=== PATIENT | male | born 1975 | race Caucasian/White ===

== ENCOUNTER → 2017-03-07 | Outpatient (CLI) | payer BC ==
[~2017-03-07] MED LIST: ATENPOW10; ATIVAN; LISIPOW
[2017-03-07 08:48] LABS: Urine RBC None Seen /hpf (0 - 3)
[2017-03-07 08:53] LABS: Basophils # (auto) 0 uL; Basophils % (auto) 0.2 % (0.0-2.0); Eosinophils # (auto) 0.1 uL; Eosinophils % (auto) 1.4 % (0.0-7.0); Hematocrit 45.3 % (41.0-53.0); Hemoglobin 15.5 g/dL (13.5-17.5); Lymphocytes # (auto) 2.3 uL; Lymphocytes % (auto) 31.5 % (10.0-50.0); Mean Corpuscular Hemoglobin 29.9 pg (28.0-32.0); Mean Corpuscular Hgb Conc. 34.2 g/dL (32.0-36.0); Mean Corpuscular Volume 87.3 fL (80.0-100.0); Mean Platelet Volume 10.4 fL (7.4-10.4); Monocytes # (auto) 0.5 uL; Monocytes % (auto) 6.7 % (0.0-12.0); Neutrophils # (auto) 4.4 uL; Neutrophils % (auto) 60.2 % (37.0-80.0); Platelet Count (auto) 230 10^3/uL (140-450); Red Cell Distribution Width 13.6 % (11.6-16.0); SUSPECT VIEW TRANSMISSION; White Blood Cell 7.3 10^3/uL (4.4-10.8)
[2017-03-07 09:14] LABS: Urine Bilirubin Negative (Negative); Urine Blood Negative /uL (Negative); Urine Color Yellow (Yellow); Urine Glucose Normal (Normal); Urine Ketone Negative (Negative); Urine Mucus FEW (None Seen); Urine Nitrite Negative (Negative); Urine Urobilinogen Normal (Negative)
[2017-03-07 09:22] LABS: BUN/Creatinine Ratio 18.7; Bilirubin, Total 0.7 mg/dL (0.2-1.0); Calcium 9.1 mg/dL (8.5-10.1); Potassium 4.4 mmol/L (3.5-5.1); Total Protein 7.9 g/dL (6.4-8.2)
== END | disposition home or self-care (01) ==
LOC: LAB 08:32
PROVIDERS: ATTEND Internal Medicine
DX: I10 Essential (primary) hypertension (principal); Z00.00 Encounter for general adult medical examination without abnormal findings
CPT/HCPCS: 36415; 80053; 80061; 81001; 82306; 83036; 85025

== ENCOUNTER 2017-11-17 23:43 | Inpatient (IN) | payer BC ==
[~2017-11-17] VITALS: Ht 30.5 cm; Wt 120.7 kg
[2017-11-18] VITALS (7 sets, daily range): BP systolic 116–152; BP diastolic 72–90
[2017-11-18] MEDS ORDERED: HYDROcodone-ACET 5/325MG TAB PO PRN (01:00)
[2017-11-18] MEDS ORDERED: NITROGLYCERIN 0.4 MG SL TAB SL PRN (01:00)
[2017-11-18] MEDS ORDERED: MORPHINE SULFATE 4 MG/ML SYR/VIAL IV PRN (01:00)
[2017-11-18] MEDS ORDERED: hydrOXYzine 25 MG TAB or CAP PO PRN (01:00)
[2017-11-18] MEDS ORDERED: ACETAMINOPHEN 500 MG TAB PO PRN (01:00)
[2017-11-18] MEDS ORDERED: LISINOPRIL 20 MG TAB PO ONE (01:00)
[2017-11-18] MEDS ORDERED: ONDANSETRON HCL 4 MG/2 ML VIAL IV PRN (01:00)
[2017-11-18] MEDS ORDERED: ATEN50TA PO (01:38)
[2017-11-18] MEDS ORDERED: IBUP100S11 PO (01:40)
[2017-11-18] MEDS ORDERED: LISI-646 PO (01:40)
[2017-11-18] MEDS ORDERED: HYDRX10T PO (01:41)
[2017-11-18 01:48] LABS: Basophils # (auto) 0 uL; Basophils % (auto) 0.5 % (0.0-2.0); Eosinophils # (auto) 0.1 uL; Eosinophils % (auto) 1.3 % (0.0-7.0); Hematocrit 40.1 % (41.0-53.0); Hemoglobin 13.8 g/dL (13.5-17.5); Lymphocytes # (auto) 2.3 uL; Lymphocytes % (auto) 35.9 % (10.0-50.0); Mean Corpuscular Hgb Conc. 34.3 g/dL (32.0-36.0); Mean Corpuscular Volume 87.3 fL (80.0-100.0); Monocytes # (auto) 0.5 uL; Monocytes % (auto) 8.4 % (0.0-12.0); Neutrophils # (auto) 3.5 uL; Neutrophils % (auto) 53.9 % (37.0-80.0); Nucleated Red Blood Cells % 0.2 %; Platelet Count (auto) 179 10^3/uL (140-450); Red Blood Cells 4.59 10^6/uL (4.5-5.90); Red Cell Distribution Width 13.4 % (11.8-14.3); White Blood Cell 6.4 10^3/uL (4.4-10.8)
[2017-11-18 04:01] LABS: BUN/Creatinine Ratio 17.3; Calcium 8.5 mg/dL (8.5-10.1); Potassium 3.8 mmol/L (3.5-5.1)
[2017-11-18] MEDS ORDERED: IBUPROFEN 600 MG TAB PO PRN ×2 (04:30→19:30)
[2017-11-18 08:34] LABS: Urine Bacteria NONE SEEN /hpf (None Seen); Urine Blood Negative /uL (Negative); Urine Specific Gravity 1.011 (1.001-1.035); Urine WBC <1 /hpf (0 - 3)
[2017-11-18] MEDS: ATENOLOL 50 MG TAB PO SCH (14:35)
[2017-11-18] MEDS ORDERED: LISINOPRIL 20 MG TAB PO SCH (18:00)
[2017-11-19 05:00] VITALS: BP_SYST 122; BP_SYST 131; BP_DIAS 66; BP_DIAS 81
[2017-11-19 07:52] VITALS: BP 119/75
[2017-11-19 08:00] VITALS: BP 119/75
[2017-11-19 09:49] VITALS: BP 122/72
[2017-11-19] MEDS: ATENOLOL 50 MG TAB PO SCH (10:00)
== END 2017-11-19 11:00 | disposition home or self-care (01) | DRG 880 ==
LOC: TELE-EAST 23:43
PROVIDERS: ADMIT Nurse Practitioner Family; ATTEND Internal Medicine
DX: F41.9 Anxiety disorder, unspecified (principal); Z68.45 Body mass index [BMI] 70 or greater, adult; E66.9 Obesity, unspecified; I45.10 Unspecified right bundle-branch block; E78.5 Hyperlipidemia, unspecified; I10 Essential (primary) hypertension; R73.9 Hyperglycemia, unspecified; Z88.1 Allergy status to other antibiotic agents; Z79.899 Other long term (current) drug therapy
CPT/HCPCS: 36415; 80048; 80061; 81001; 82962; 83036; 84443; 85025

== ENCOUNTER → 2017-12-13 | Outpatient (CLI) | payer BC ==
[~2017-12-13] MED LIST changes: +ATEN50TA PO; -ATENPOW10; -ATIVAN; +HYDRX10T PO; +IBUP100S11 PO; +LISI-646 PO; -LISIPOW
[2017-12-13 10:44] LABS: Basophils # (auto) 0 uL; Basophils % (auto) 0.5 % (0.0-2.0); Eosinophils # (auto) 0.1 uL; Eosinophils % (auto) 1.4 % (0.0-7.0); Hematocrit 43.9 % (41.0-53.0); Hemoglobin 15.1 g/dL (13.5-17.5); Lymphocytes # (auto) 2.3 uL; Lymphocytes % (auto) 36.5 % (10.0-50.0); Mean Corpuscular Hemoglobin 29.9 pg (28.0-32.0); Mean Corpuscular Hgb Conc. 34.4 g/dL (32.0-36.0); Monocytes # (auto) 0.5 uL; Monocytes % (auto) 7.9 % (0.0-12.0); Neutrophils # (auto) 3.3 uL; Neutrophils % (auto) 53.7 % (37.0-80.0); Platelet Count (auto) 195 10^3/uL (140-450); Red Blood Cells 5.04 10^6/uL (4.5-5.90); Red Cell Distribution Width 13.4 % (11.8-14.3); White Blood Cell 6.2 10^3/uL (4.4-10.8)
[2017-12-13 10:58] LABS: Albumin 3.8 g/dL (3.4-5.0); BUN/Creatinine Ratio 23.5; Bilirubin, Total 0.7 mg/dL (0.2-1.0); Calcium 8.7 mg/dL (8.5-10.1); Potassium 3.9 mmol/L (3.5-5.1); Total Protein 7.4 g/dL (6.4-8.2)
== END | disposition home or self-care (01) ==
LOC: LAB 10:12
PROVIDERS: ATTEND Physician Assistant
DX: I10 Essential (primary) hypertension (principal); I45.10 Unspecified right bundle-branch block; E55.9 Vitamin D deficiency, unspecified; E78.4 Other hyperlipidemia; G47.30 Sleep apnea, unspecified
CPT/HCPCS: 36415; 80053; 80061; 82306; 85025

== ENCOUNTER → 2018-01-22 | Outpatient (CLI) | payer BC | END | disposition home or self-care (01) | LOC: XY 08:18 | PROVIDERS: ATTEND Internal Medicine Cardiovascular Disease | DX: I45.10 Unspecified right bundle-branch block (principal); I10 Essential (primary) hypertension; E78.5 Hyperlipidemia, unspecified; Z79.899 Other long term (current) drug therapy | CPT/HCPCS: 93306 ==

== ENCOUNTER → 2018-02-08 | Outpatient (CLI) | payer BC ==
[~2018-02-08] MED LIST changes: +ASPI-498 OR; +HYDR50TA69 PO; +IBUP800T24 PO
[2018-02-08 11:29] LABS: Basophils # (auto) 0 uL; Basophils % (auto) 0.5 % (0.0-2.0); Eosinophils # (auto) 0.1 uL; Hematocrit 46.2 % (41.0-53.0); Hemoglobin 15.7 g/dL (13.5-17.5); Lymphocytes # (auto) 2.1 uL; Mean Corpuscular Hemoglobin 29.6 pg (28.0-32.0); Mean Corpuscular Hgb Conc. 33.9 g/dL (32.0-36.0); Mean Corpuscular Volume 87.3 fL (80.0-100.0); Monocytes # (auto) 0.5 uL; Monocytes % (auto) 9.2 % (0.0-12.0); Neutrophils # (auto) 3.1 uL; Neutrophils % (auto) 53.3 % (37.0-80.0); Platelet Count (auto) 222 10^3/uL (140-450); Red Blood Cells 5.29 10^6/uL (4.5-5.90); Red Cell Distribution Width 13.2 % (11.8-14.3); White Blood Cell 5.8 10^3/uL (4.4-10.8)
[2018-02-08 11:39] LABS: INR 0.98 (0.9-1.15); Partial Thromboplastin Time 26.5 sec (22.64-33.71); Prothrombin Time 10.7 sec (9.37-12.3)
[2018-02-08 12:00] LABS: Albumin 4.2 g/dL (3.4-5.0); BUN/Creatinine Ratio 23.6; Bilirubin, Total 0.8 mg/dL (0.2-1.0); Calcium 9.3 mg/dL (8.5-10.1); Potassium 4.2 mmol/L (3.5-5.1); Total Protein 7.7 g/dL (6.4-8.2)
== END | disposition home or self-care (01) ==
LOC: LAB 10:42
PROVIDERS: ATTEND Internal Medicine Cardiovascular Disease
DX: Z01.812 Encounter for preprocedural laboratory examination (principal); I47.1 Supraventricular tachycardia; I10 Essential (primary) hypertension; E78.5 Hyperlipidemia, unspecified; Z79.899 Other long term (current) drug therapy
CPT/HCPCS: 36415; 80053; 85025; 85610; 85730

== ENCOUNTER 2018-02-12 08:25 | Day surgery (SDC) | payer BC ==
[~2018-02-12] VITALS: Ht 175.3 cm; Wt 117.9 kg
[~2018-02-12 08:25] MED LIST changes: -HYDRX10T PO; -IBUP100S11 PO
[2018-02-12] MEDS ORDERED: IODIXANOL 320MG/ML 100ML BTL IV ONE (08:53)
[2018-02-12] MEDS ORDERED: LIDOCAINE 2%HCL (LOCAL ANESTH.) INJ 20ML MDV ONE (08:53)
[2018-02-12] MEDS ORDERED: diphenhdrAMINE HCL 50 MG/1 ML VL ONE (09:01)
[2018-02-12] MEDS ORDERED: SODIUM CHL 0.9% 0 ML ONE (09:02)
[2018-02-12] MEDS ORDERED: VERAPAMIL 2.5MG/ML INJ 2ML VIAL IV ONE (09:02)
[2018-02-12] MEDS ORDERED: ANGIOMAX 250 MG VIAL IV ONE (09:02)
[2018-02-12] MEDS ORDERED: MIDAZOLAM HCL 1MG/1ML-2 ML VIAL ONE ×2 (09:02→09:35)
[2018-02-12] MEDS ORDERED: fentaNYL CITRATE 100 MCG/2 ML VL ONE (09:02)
[2018-02-12] MEDS ORDERED: HEPARIN 1,000 UNITS/ml 1ML VIAL ONE (10:20)
== END 2018-02-12 12:30 | disposition home or self-care (01) ==
LOC: CATH 08:25
PROVIDERS: ATTEND Internal Medicine Cardiovascular Disease
DX: I99.8 Other disorder of circulatory system (principal); I10 Essential (primary) hypertension; E66.01 Morbid (severe) obesity due to excess calories; Z68.39 Body mass index [BMI] 39.0-39.9, adult; Z88.1 Allergy status to other antibiotic agents
CPT/HCPCS: 93454; C1769; C1887; C1894; J1200; J1644; J2250; J3010; J7030; Q9967; 99152; 99153

== ENCOUNTER 2018-02-16 11:32 | Inpatient (IN) | payer BC ==
[~2018-02-16] VITALS: Ht 177.8 cm; Wt 121.4 kg
[2018-02-16 12:38] LABS: Basophils # (auto) 0 uL; Basophils % (auto) 0.2 % (0.0-2.0); Eosinophils # (auto) 0.1 uL; Eosinophils % (auto) 0.7 % (0.0-7.0); Hematocrit 44.9 % (41.0-53.0); Hemoglobin 15.4 g/dL (13.5-17.5); Lymphocytes # (auto) 1.6 uL; Lymphocytes % (auto) 21.5 % (10.0-50.0); Mean Corpuscular Hemoglobin 29.8 pg (28.0-32.0); Mean Corpuscular Hgb Conc. 34.2 g/dL (32.0-36.0); Mean Corpuscular Volume 87.3 fL (80.0-100.0); Monocytes # (auto) 0.5 uL; Monocytes % (auto) 6.7 % (0.0-12.0); Neutrophils # (auto) 5.4 uL; Neutrophils % (auto) 70.9 % (37.0-80.0); Nucleated Red Blood Cells % 0.2 %; Platelet Count (auto) 228 10^3/uL (140-450); Red Blood Cells 5.15 10^6/uL (4.5-5.90); Red Cell Distribution Width 13.6 % (11.8-14.3); White Blood Cell 7.5 10^3/uL (4.4-10.8)
[2018-02-16 12:50] LABS: INR 0.97 (0.9-1.15); Partial Thromboplastin Time 26.8 sec (22.64-33.71); Prothrombin Time 10.6 sec (9.37-12.3)
[2018-02-16 12:54] LABS: Albumin 4.1 g/dL (3.4-5.0); BUN/Creatinine Ratio 17.4; Bilirubin, Total 0.8 mg/dL (0.2-1.0); Calcium 9.2 mg/dL (8.5-10.1); Potassium 4.2 mmol/L (3.5-5.1)
[2018-02-16] MEDS ORDERED: HEPARIN SODIUM (PORCINE) 5000 UNITS/ML 1ML VIAL IV ONE ×2 (13:45→14:00)
[2018-02-16 14:04] LABS: Basophils # (auto) 0 uL; Basophils % (auto) 0.5 % (0.0-2.0); Eosinophils # (auto) 0 uL; Eosinophils % (auto) 0.4 % (0.0-7.0); Hematocrit 44.8 % (41.0-53.0); Hemoglobin 15.4 g/dL (13.5-17.5); Lymphocytes # (auto) 1.6 uL; Lymphocytes % (auto) 19.6 % (10.0-50.0); Mean Corpuscular Hgb Conc. 34.4 g/dL (32.0-36.0); Mean Corpuscular Volume 87.1 fL (80.0-100.0); Monocytes # (auto) 0.7 uL; Monocytes % (auto) 8.9 % (0.0-12.0); Neutrophils # (auto) 5.8 uL; Neutrophils % (auto) 70.6 % (37.0-80.0); Platelet Count (auto) 229 10^3/uL (140-450); Red Blood Cells 5.14 10^6/uL (4.5-5.90); Red Cell Distribution Width 13.3 % (11.8-14.3); White Blood Cell 8.3 10^3/uL (4.4-10.8)
[2018-02-16 14:16] LABS: INR 0.99 (0.9-1.15); Partial Thromboplastin Time 27.8 sec (22.64-33.71); Prothrombin Time 10.8 sec (9.37-12.3)
[2018-02-16] MEDS: HEPARIN DRIP/D5W 100UNITS/ML 250 ML IV SCH (14:51)
[2018-02-16] MEDS ORDERED: DEXTROSE (50%) 50ML SYRG IV PRN (16:15)
[2018-02-16] MEDS ORDERED: MORPHINE SULFATE 4 MG/ML SYR/VIAL IV PRN ×2 (16:15)
[2018-02-16] MEDS ORDERED: cloNIDine HCL 0.1 MG TAB PO PRN (16:15)
[2018-02-16] MEDS ORDERED: NITROGLYCERIN 0.4 MG SL TAB SL PRN (16:15)
[2018-02-16] MEDS ORDERED: ONDANSETRON HCL 4 MG/2 ML VIAL IV PRN (16:15)
[2018-02-16] MEDS ORDERED: TEMAZEPAM 15 MG CAP PO PRN (16:15)
[2018-02-16] MEDS ORDERED: ACETAMINOPHEN 325 MG TAB PO PRN (16:15)
[2018-02-16] MEDS ORDERED: HYDROcodone-ACET 5/325MG TAB PO PRN (16:15)
[2018-02-16] MEDS ORDERED: DOCUSATE SOD 100 MG CAP PO PRN (16:15)
[2018-02-16] MEDS: InsuLIN REG 1unit/0.01ml Soln (100units/ml) SC SCH ×2 (16:39→21:47)
[2018-02-16] MEDS: ACCU-CHEK COMFORT CURVE STRIP VI SCH ×2 (16:39→21:47)
[2018-02-16 17:07] VITALS: BP 130/77
[2018-02-16] MEDS: IBUPROFEN 800 MG TAB PO PRN (18:08)
[2018-02-16] MEDS ORDERED: AML5T PO (18:17)
[2018-02-16 20:15] LABS: INR 1.01 (0.9-1.15); Partial Thromboplastin Time 55.8 sec (22.64-33.71)
[2018-02-16] MEDS: SODIUM CHLOR 0.9% PF (SALINE LOCK) 10ML VIAL/SYR IV SCH (21:47)
[2018-02-16] MEDS: FAMOTIDINE 20 MG TAB PO SCH (21:47)
[2018-02-16 22:01] VITALS: BP 146/73
[2018-02-17] VITALS (7 sets, daily range): BP systolic 137–158; BP diastolic 65–79
[2018-02-17 02:37] LABS: INR 0.96 (0.9-1.15); Partial Thromboplastin Time 46.4 sec (22.64-33.71); Prothrombin Time 10.5 sec (9.37-12.3)
[2018-02-17] MEDS: HEPARIN DRIP/D5W 100UNITS/ML 250 ML IV SCH ×3 (03:33→15:33)
[2018-02-17 05:56] LABS: Basophils # (auto) 0 uL; Basophils % (auto) 0.2 % (0.0-2.0); Eosinophils # (auto) 0.1 uL; Eosinophils % (auto) 1.6 % (0.0-7.0); Hematocrit 42.9 % (41.0-53.0); Hemoglobin 15.1 g/dL (13.5-17.5); Lymphocytes # (auto) 2.4 uL; Mean Corpuscular Hemoglobin 31.2 pg (28.0-32.0); Mean Corpuscular Hgb Conc. 35.3 g/dL (32.0-36.0); Mean Corpuscular Volume 88.4 fL (80.0-100.0); Monocytes # (auto) 0.6 uL; Monocytes % (auto) 8.1 % (0.0-12.0); Neutrophils # (auto) 4.7 uL; Neutrophils % (auto) 60.1 % (37.0-80.0); Platelet Count (auto) 230 10^3/uL (140-450); Red Blood Cells 4.86 10^6/uL (4.5-5.90); Red Cell Distribution Width 13.1 % (11.8-14.3); White Blood Cell 7.9 10^3/uL (4.4-10.8)
[2018-02-17] MEDS: ACCU-CHEK COMFORT CURVE STRIP VI SCH ×3 (06:04→17:00)
[2018-02-17] MEDS: InsuLIN REG 1unit/0.01ml Soln (100units/ml) SC SCH ×3 (06:04→17:00)
[2018-02-17] MEDS: SODIUM CHLOR 0.9% PF (SALINE LOCK) 10ML VIAL/SYR IV SCH ×3 (06:05→22:00)
[2018-02-17 06:08] LABS: Albumin 3.9 g/dL (3.4-5.0); BUN/Creatinine Ratio 23.3; Calcium 9.1 mg/dL (8.5-10.1); Potassium 3.7 mmol/L (3.5-5.1)
[2018-02-17 06:18] LABS: Total Protein 7.9 g/dL (6.4-8.2)
[2018-02-17 08:20] LABS: INR 1.08 (0.9-1.15)
[2018-02-17 08:33] LABS: Partial Thromboplastin Time > 170.00 sec (22.64-33.71)
[2018-02-17] MEDS: FAMOTIDINE 20 MG TAB PO SCH (09:34)
[2018-02-17] MEDS: ATENOLOL 25 MG TAB PO SCH (09:34)
[2018-02-17] MEDS: IBUPROFEN 800 MG TAB PO PRN ×2 (09:35→18:49)
[2018-02-17] MEDS: LISINOPRIL 20 MG TAB PO SCH (09:35)
[2018-02-17] MEDS: MULTIPLE VITAMIN TAB PO SCH (09:36)
[2018-02-17] MEDS: amLODIPine BESYLATE 5 MG TAB PO SCH (09:36)
[2018-02-17] MEDS: hydrOXYzine 25 MG TAB or CAP PO PRN (09:41)
[2018-02-17] MEDS: ASPirin-EC 81 mg tab PO SCH (10:00)
[2018-02-17 15:53] LABS: INR 0.99 (0.9-1.15); Partial Thromboplastin Time 38.7 sec (22.64-33.71); Prothrombin Time 10.8 sec (9.37-12.3)
[2018-02-17] MEDS ORDERED: HEPARIN DRIP/D5W 100UNITS/ML 250 ML IV SCH (16:15)
[2018-02-17] MEDS ORDERED: LIDOCAINE 2%HCL (LOCAL ANESTH.) INJ 20ML MDV ONE (20:32)
[2018-02-17] MEDS ORDERED: IODIXANOL 320MG/ML 100ML BTL IV ONE (20:32)
[2018-02-17] MEDS ORDERED: diphenhdrAMINE HCL 50 MG/1 ML VL ONE (21:08)
[2018-02-17] MEDS ORDERED: ANGIOMAX 250 MG VIAL IV ONE ×2 (21:08→22:38)
[2018-02-17] MEDS ORDERED: SODIUM CHL 0.9% 50 ML ONE ×2 (21:09→22:38)
[2018-02-17] MEDS ORDERED: fentaNYL CITRATE 100 MCG/2 ML VL ONE ×2 (21:09→22:08)
[2018-02-17] MEDS ORDERED: MIDAZOLAM HCL 1MG/1ML-2 ML VIAL ONE ×2 (21:09→22:08)
[2018-02-17] MEDS ORDERED: EPTIFIBATIDE INJ (2MG/ML) 10ML VIAL IV ONE (21:11)
[2018-02-17] MEDS ORDERED: LORazepam 2MG/ML-1ML VIAL ONE (21:21)
[2018-02-17] MEDS ORDERED: VERAPAMIL 2.5MG/ML INJ 2ML VIAL IV ONE (21:32)
[2018-02-17] MEDS ORDERED: EPTIFIBATIDE DRIP(0.75MG/ML) 0 ML IV ONE (21:44)
[2018-02-17] MEDS ORDERED: CATHFLO ACTIVASE (ALTEPLASE) 2 MG VIAL IV ONE ×2 (22:49→23:36)
[2018-02-17] MEDS ORDERED: MORPHINE SULFATE 4 MG/ML SYR/VIAL IV PRN (23:30)
[2018-02-17] MEDS ORDERED: NITROGLYCERIN 0.4 MG SL TAB SL PRN (23:30)
[2018-02-17] MEDS ORDERED: MORPHINE SULFATE 4 MG/ML SYR/VIAL IV ONE (23:45)
[2018-02-17] MEDS ORDERED: ONDANSETRON HCL 4 MG/2 ML VIAL IV PRN (23:45)
[2018-02-18] VITALS (58 sets, daily range): BP systolic 106–175; BP diastolic 41–126
[2018-02-18] MEDS ORDERED: HEPARIN DRIP/D5W 100UNITS/ML 250 ML IV SCH ×3 (00:45→15:00)
[2018-02-18] MEDS: FAMOTIDINE 20 MG TAB PO SCH ×3 (01:00→21:27)
[2018-02-18] MEDS: ACCU-CHEK COMFORT CURVE STRIP VI SCH ×5 (01:00→21:24)
[2018-02-18] MEDS: InsuLIN REG 1unit/0.01ml Soln (100units/ml) SC SCH ×5 (01:03→21:24)
[2018-02-18] MEDS: HYDROmorphone HCL 2 MG/ML VL IV PRN ×4 (01:51→11:14)
[2018-02-18] MEDS: SODIUM CHLOR 0.9% PF (SALINE LOCK) 10ML VIAL/SYR IV SCH ×3 (06:00→21:27)
[2018-02-18 06:49] LABS: Basophils # (auto) 0 uL; Basophils % (auto) 0.4 % (0.0-2.0); Eosinophils # (auto) 0.1 uL; Eosinophils % (auto) 0.7 % (0.0-7.0); Hematocrit 40.4 % (41.0-53.0); Hemoglobin 14.1 g/dL (13.5-17.5); Lymphocytes # (auto) 1.8 uL; Lymphocytes % (auto) 23.9 % (10.0-50.0); Mean Corpuscular Hemoglobin 30.5 pg (28.0-32.0); Mean Corpuscular Hgb Conc. 34.8 g/dL (32.0-36.0); Mean Corpuscular Volume 87.8 fL (80.0-100.0); Monocytes # (auto) 0.7 uL; Monocytes % (auto) 9.1 % (0.0-12.0); Neutrophils # (auto) 4.9 uL; Neutrophils % (auto) 65.9 % (37.0-80.0); Nucleated Red Blood Cells % 0.5 %; Platelet Count (auto) 227 10^3/uL (140-450); Red Cell Distribution Width 13.5 % (11.8-14.3); White Blood Cell 7.5 10^3/uL (4.4-10.8)
[2018-02-18 06:52] LABS: INR 1.01 (0.9-1.15); Partial Thromboplastin Time 30.1 sec (22.64-33.71)
[2018-02-18 07:18] LABS: Albumin 3.7 g/dL (3.4-5.0); BUN/Creatinine Ratio 22.8; Bilirubin, Total 0.6 mg/dL (0.2-1.0); Calcium 8.6 mg/dL (8.5-10.1); Potassium 4.3 mmol/L (3.5-5.1); Total Protein 7.1 g/dL (6.4-8.2)
[2018-02-18] MEDS ORDERED: ALTEPLASE CATHFLO IV ONE (07:30)
[2018-02-18] MEDS ORDERED: SODIUM CHL 0.9% IV ONE (07:30)
[2018-02-18 08:22] LABS: Fibrinogen 368.5 mg/dL (177-375)
[2018-02-18] MEDS: ATENOLOL 25 MG TAB PO SCH (09:37)
[2018-02-18] MEDS: ASPirin-EC 81 mg tab PO SCH (09:37)
[2018-02-18] MEDS: MULTIPLE VITAMIN TAB PO SCH (09:37)
[2018-02-18] MEDS: LISINOPRIL 20 MG TAB PO SCH (09:38)
[2018-02-18] MEDS: amLODIPine BESYLATE 5 MG TAB PO SCH (09:38)
[2018-02-18] MEDS ORDERED: CATHFLO ACTIVASE (ALTEPLASE) 2 MG VIAL IV SCH (10:00)
[2018-02-18] MEDS ORDERED: IODIXANOL 320MG/ML 100ML BTL IV ONE (10:51)
[2018-02-18] MEDS ORDERED: LIDOCAINE 2%HCL (LOCAL ANESTH.) INJ 20ML MDV ONE (10:52)
[2018-02-18] MEDS ORDERED: HYDROmorphone HCL 2 MG/ML VL IV PRN (12:45)
[2018-02-18] MEDS ORDERED: cloNIDine HCL 0.1 MG TAB PO PRN (13:00)
[2018-02-18] MEDS ORDERED: SODIUM CHL 0.9% 50 ML ONE (13:11)
[2018-02-18] MEDS ORDERED: MIDAZOLAM HCL 1MG/1ML-2 ML VIAL ONE (13:11)
[2018-02-18] MEDS ORDERED: fentaNYL CITRATE 100 MCG/2 ML VL ONE (13:11)
[2018-02-18] MEDS ORDERED: ANGIOMAX 250 MG VIAL IV ONE (13:12)
[2018-02-18] MEDS ORDERED: LORazepam 2MG/ML-1ML VIAL ONE (13:15)
[2018-02-18] MEDS ORDERED: VERAPAMIL 2.5MG/ML INJ 2ML VIAL IV ONE (13:56)
[2018-02-18] MEDS: HEPARIN DRIP/D5W 100UNITS/ML 250 ML IV SCH (19:45)
[2018-02-18] MEDS ORDERED: APIXABAN 5 MG TAB PO SCH (20:00)
[2018-02-18] MEDS: hydrOXYzine 25 MG TAB or CAP PO PRN (21:37)
[2018-02-18 22:11] LABS: INR 0.99 (0.9-1.15); Partial Thromboplastin Time 38.5 sec (22.64-33.71); Prothrombin Time 10.8 sec (9.37-12.3)
[2018-02-19] VITALS (11 sets, daily range): BP systolic 101–138; BP diastolic 57–98
[2018-02-19] MEDS: HEPARIN DRIP/D5W 100UNITS/ML 250 ML IV SCH (00:32)
[2018-02-19 04:06] LABS: Basophils # (auto) 0 uL; Basophils % (auto) 0.5 % (0.0-2.0); Eosinophils # (auto) 0.1 uL; Eosinophils % (auto) 0.8 % (0.0-7.0); Hematocrit 34.7 % (41.0-53.0); Lymphocytes # (auto) 2.3 uL; Lymphocytes % (auto) 25.6 % (10.0-50.0); Mean Corpuscular Hemoglobin 30.3 pg (28.0-32.0); Mean Corpuscular Hgb Conc. 34.6 g/dL (32.0-36.0); Mean Corpuscular Volume 87.6 fL (80.0-100.0); Monocytes # (auto) 0.8 uL; Monocytes % (auto) 8.7 % (0.0-12.0); Neutrophils # (auto) 5.7 uL; Neutrophils % (auto) 64.4 % (37.0-80.0); Platelet Count (auto) 208 10^3/uL (140-450); Red Blood Cells 3.96 10^6/uL (4.5-5.90); Red Cell Distribution Width 13.4 % (11.8-14.3); White Blood Cell 8.8 10^3/uL (4.4-10.8)
[2018-02-19 04:22] LABS: BUN/Creatinine Ratio 23.6; Calcium 8.5 mg/dL (8.5-10.1); Potassium 4.1 mmol/L (3.5-5.1)
[2018-02-19 04:32] LABS: INR 1.03 (0.9-1.15); Prothrombin Time 11.2 sec (9.37-12.3)
[2018-02-19 04:37] LABS: Partial Thromboplastin Time 113.4 sec (22.64-33.71)
[2018-02-19] MEDS: SODIUM CHLOR 0.9% PF (SALINE LOCK) 10ML VIAL/SYR IV SCH ×3 (06:22→21:38)
[2018-02-19] MEDS: ACCU-CHEK COMFORT CURVE STRIP VI SCH ×4 (06:29→21:39)
[2018-02-19] MEDS: InsuLIN REG 1unit/0.01ml Soln (100units/ml) SC SCH ×4 (06:30→21:38)
[2018-02-19] MEDS ORDERED: APIXABAN 5 MG TAB PO SCH (08:00)
[2018-02-19] MEDS: MULTIPLE VITAMIN TAB PO SCH (09:36)
[2018-02-19] MEDS: amLODIPine BESYLATE 5 MG TAB PO SCH (09:36)
[2018-02-19] MEDS: ASPirin-EC 81 mg tab PO SCH (09:36)
[2018-02-19] MEDS: ATENOLOL 25 MG TAB PO SCH (09:37)
[2018-02-19] MEDS: FAMOTIDINE 20 MG TAB PO SCH ×2 (09:37→21:38)
[2018-02-19] MEDS: LISINOPRIL 20 MG TAB PO SCH (09:40)
[2018-02-19] MEDS ORDERED: APIXABAN 5 MG TAB PO ONE (12:00)
[2018-02-19] MEDS ORDERED: HYDROmorphone HCL 2 MG/ML VL IV PRN (13:15)
[2018-02-19] MEDS: IBUPROFEN 800 MG TAB PO PRN ×2 (13:19→21:39)
[2018-02-19] MEDS: APIXABAN 5 MG TAB PO SCH (21:36)
[2018-02-19] MEDS: hydrOXYzine 25 MG TAB or CAP PO PRN (21:40)
[2018-02-20 03:37] VITALS: BP 110/71
[2018-02-20 05:06] VITALS: BP 123/75
[2018-02-20 06:03] LABS: Basophils # (auto) 0 uL; Basophils % (auto) 0.4 % (0.0-2.0); Eosinophils # (auto) 0.1 uL; Eosinophils % (auto) 1.8 % (0.0-7.0); Hematocrit 34.4 % (41.0-53.0); Hemoglobin 12.2 g/dL (13.5-17.5); Lymphocytes # (auto) 1.7 uL; Lymphocytes % (auto) 22.5 % (10.0-50.0); Mean Corpuscular Hgb Conc. 35.4 g/dL (32.0-36.0); Mean Corpuscular Volume 87.7 fL (80.0-100.0); Monocytes # (auto) 0.9 uL; Monocytes % (auto) 11.9 % (0.0-12.0); Neutrophils # (auto) 4.8 uL; Neutrophils % (auto) 63.4 % (37.0-80.0); Nucleated Red Blood Cells % 0.2 %; Platelet Count (auto) 195 10^3/uL (140-450); Red Blood Cells 3.93 10^6/uL (4.5-5.90); White Blood Cell 7.5 10^3/uL (4.4-10.8)
[2018-02-20] MEDS: ACCU-CHEK COMFORT CURVE STRIP VI SCH ×2 (07:00→11:48)
[2018-02-20] MEDS: InsuLIN REG 1unit/0.01ml Soln (100units/ml) SC SCH ×2 (07:00→11:30)
[2018-02-20 07:46] VITALS: BP 117/76
[2018-02-20] MEDS: SODIUM CHLOR 0.9% PF (SALINE LOCK) 10ML VIAL/SYR IV SCH (08:00)
[2018-02-20] MEDS: APIXABAN 5 MG TAB PO SCH (09:04)
[2018-02-20] MEDS: ASPirin-EC 81 mg tab PO SCH (09:05)
[2018-02-20] MEDS: MULTIPLE VITAMIN TAB PO SCH (09:05)
[2018-02-20] MEDS: ATENOLOL 25 MG TAB PO SCH (09:05)
[2018-02-20] MEDS: LISINOPRIL 20 MG TAB PO SCH (09:05)
[2018-02-20] MEDS: FAMOTIDINE 20 MG TAB PO SCH (09:05)
[2018-02-20] MEDS: amLODIPine BESYLATE 5 MG TAB PO SCH (09:06)
[2018-02-20 11:24] VITALS: BP 117/76
[2018-02-20 11:56] VITALS: BP 111/73
[2018-02-26] MEDS ORDERED: APIXABAN 5 MG TAB PO SCH (10:00)
== END 2018-02-20 12:10 | disposition home or self-care (01) | DRG 254 ==
LOC: ER 11:32 → TELE 11:33 → TELE-CENTR 16:40 → ICU WEST 02-17 23:35 → TELE-CENTR 02-19 10:00
PROVIDERS: ADMIT Internal Medicine; ATTEND Internal Medicine
PROC: 5A09357 Assistance with Respiratory Ventilation, Less than 24 Consecutive Hours, Continuous Positive Airway Pressure (ICD-10-PCS; 2018-02-16)
PROC: 03CB3ZZ Extirpation of Matter from Right Radial Artery, Percutaneous Approach (ICD-10-PCS; principal; 2018-02-17)
PROC: 3E05317 Introduction of Other Thrombolytic into Peripheral Artery, Percutaneous Approach (ICD-10-PCS; 2018-02-17)
PROC: B31H1ZZ Fluoroscopy of Right Upper Extremity Arteries using Low Osmolar Contrast (ICD-10-PCS; 2018-02-17)
PROC: 5A09357 Assistance with Respiratory Ventilation, Less than 24 Consecutive Hours, Continuous Positive Airway Pressure (ICD-10-PCS; 2018-02-17)
PROC: 03CB3ZZ Extirpation of Matter from Right Radial Artery, Percutaneous Approach (ICD-10-PCS; 2018-02-18)
PROC: 03C73ZZ Extirpation of Matter from Right Brachial Artery, Percutaneous Approach (ICD-10-PCS; 2018-02-18)
PROC: 5A09357 Assistance with Respiratory Ventilation, Less than 24 Consecutive Hours, Continuous Positive Airway Pressure (ICD-10-PCS; 2018-02-18)
PROC: 5A09357 Assistance with Respiratory Ventilation, Less than 24 Consecutive Hours, Continuous Positive Airway Pressure (ICD-10-PCS; 2018-02-19)
PROC: 5A09357 Assistance with Respiratory Ventilation, Less than 24 Consecutive Hours, Continuous Positive Airway Pressure (ICD-10-PCS; 2018-02-20)
DX: I74.2 Embolism and thrombosis of arteries of the upper extremities (principal); E66.9 Obesity, unspecified; R73.9 Hyperglycemia, unspecified; E78.5 Hyperlipidemia, unspecified; I10 Essential (primary) hypertension; Z68.38 Body mass index [BMI] 38.0-38.9, adult; Z79.01 Long term (current) use of anticoagulants; Z79.82 Long term (current) use of aspirin; Z88.1 Allergy status to other antibiotic agents; Z79.899 Other long term (current) drug therapy
CPT/HCPCS: 36415; 37184; 37211; 80048; 80053; 82962; 83036; 85025; 85384; 85610; 85730; 87081; 93005; 93930; 94660; 96374; 99152; 99153; J2250; Q9967

== ENCOUNTER → 2018-12-17 | Outpatient (CLI) | payer BC ==
[~2018-12-17] MED LIST changes: +AML5T PO
[2018-12-17 15:55] LABS: Urine Blood Negative /uL (Negative)
[2018-12-17 16:07] LABS: Albumin 4.3 g/dL (3.4-5.0); Calcium 9.4 mg/dL (8.5-10.1); Potassium 3.9 mmol/L (3.5-5.1)
[2018-12-17 16:12] LABS: Bilirubin, Total 0.7 mg/dL (0.2-1.0); Total Protein 8.2 g/dL (6.4-8.2)
[2018-12-17 16:20] LABS: BUN/Creatinine Ratio 19.3
[2018-12-17 16:23] LABS: Free T4 (Free Thyroxine) 1.22 ng/dL (0.89-1.76); Prostate Specific Antigen 0.52 ng/mL (0.0-4.0)
[2018-12-17 16:28] LABS: Basophils # (auto) 0 uL; Basophils % (auto) 0.5 % (0.0-2.0); Eosinophils # (auto) 0.1 uL; Eosinophils % (auto) 0.7 % (0.0-7.0); Hematocrit 47.1 % (41.0-53.0); Hemoglobin 16.1 g/dL (13.5-17.5); Lymphocytes # (auto) 1.7 uL; Lymphocytes % (auto) 25.4 % (10.0-50.0); Mean Corpuscular Hemoglobin 29.8 pg (28.0-32.0); Mean Corpuscular Hgb Conc. 34.1 g/dL (32.0-36.0); Mean Corpuscular Volume 87.5 fL (80.0-100.0); Monocytes # (auto) 0.6 uL; Monocytes % (auto) 9.3 % (0.0-12.0); Neutrophils # (auto) 4.4 uL; Neutrophils % (auto) 64.1 % (37.0-80.0); Nucleated Red Blood Cells % 0.1 %; Platelet Count (auto) 231 10^3/uL (140-450); Red Blood Cells 5.38 10^6/uL (4.5-5.90); Red Cell Distribution Width 13.3 % (11.8-14.3); White Blood Cell 6.8 10^3/uL (4.4-10.8)
== END | disposition home or self-care (01) ==
LOC: LAB 15:10
PROVIDERS: ATTEND Internal Medicine
DX: E55.9 Vitamin D deficiency, unspecified (principal); E03.9 Hypothyroidism, unspecified; E11.9 Type 2 diabetes mellitus without complications; C61 Malignant neoplasm of prostate; D51.9 Vitamin B12 deficiency anemia, unspecified; E29.1 Testicular hypofunction; N39.0 Urinary tract infection, site not specified
CPT/HCPCS: 36415; 80053; 80061; 81003; 82306; 82607; 83036; 84153; 84403; 84439; 84443; 85025

== ENCOUNTER → 2019-04-21 | Outpatient (CLI) | payer BC ==
[2019-04-21 12:11] LABS: Potassium 4.2 mmol/L (3.5-5.1)
[2019-04-21 12:26] LABS: BUN/Creatinine Ratio 22.5; Bilirubin, Total 0.8 mg/dL (0.2-1.0); Calcium 9.4 mg/dL (8.5-10.1); Total Protein 7.6 g/dL (6.4-8.2)
== END | disposition home or self-care (01) ==
LOC: LAB 08:38
PROVIDERS: ATTEND Internal Medicine
DX: E78.5 Hyperlipidemia, unspecified (principal); I10 Essential (primary) hypertension
CPT/HCPCS: 36415; 80053; 80061

== ENCOUNTER → 2020-01-02 | Outpatient (CLI) | payer BC ==
[2020-01-02 11:06] LABS: Basophils # (auto) 0 10 ^3/uL (0-0.2); Basophils % (auto) 0.4 % (0.0-2.0); Eosinophils # (auto) 0.1 10 ^3/uL (0-0.8); Eosinophils % (auto) 1.2 % (0.0-7.0); Hematocrit 47.1 % (41.0-53.0); Hemoglobin 16.1 g/dL (13.5-17.5); Lymphocytes % (auto) 32.1 % (10.0-50.0); Mean Corpuscular Hemoglobin 29.9 pg (28.0-32.0); Mean Corpuscular Hgb Conc. 34.2 g/dL (32.0-36.0); Mean Corpuscular Volume 87.3 fL (80.0-100.0); Monocytes # (auto) 0.4 10 ^3/uL (0-1.3); Monocytes % (auto) 6.8 % (0.0-12.0); Neutrophils # (auto) 3.7 10 ^3/uL (1.6-8.6); Neutrophils % (auto) 59.5 % (37.0-80.0); Platelet Count (auto) 221 10^3/uL (140-450); Red Cell Distribution Width 13.4 % (11.8-14.3); White Blood Cell 6.2 10^3/uL (4.4-10.8)
[2020-01-02 13:04] LABS: Albumin 4.2 g/dL (3.4-5.0); Calcium 9.4 mg/dL (8.5-10.1); Potassium 4.3 mmol/L (3.5-5.1)
[2020-01-02 13:11] LABS: BUN/Creatinine Ratio 20.9; Bilirubin, Total 0.8 mg/dL (0.2-1.0); Total Protein 8.1 g/dL (6.4-8.2)
== END | disposition home or self-care (01) ==
LOC: LAB 10:54
PROVIDERS: ATTEND Physician Assistant
DX: I45.10 Unspecified right bundle-branch block (principal); I82.90 Acute embolism and thrombosis of unspecified vein; I10 Essential (primary) hypertension; E55.9 Vitamin D deficiency, unspecified; E78.5 Hyperlipidemia, unspecified
CPT/HCPCS: 36415; 80053; 80061; 82306; 85025